=== PATIENT | female | born 1990 | race Caucasian/White ===

== ENCOUNTER 2017-01-17 03:44 | Emergency (ER) | payer SELFPAY ==
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
[2017-01-17] MEDS ORDERED: Haloperidol Lactate 5 MG/ML SDV ONE (04:03)
[2017-01-17] MEDS ORDERED: Haloperidol Lactate 5 MG/ML SDV IM ONE ×2 (04:06→04:47)
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
== END 2017-01-17 06:10 ==
LOC: MW.ED 03:44
DX: S00.83XA Contusion of other part of head, initial encounter (principal); F10.120 Alcohol abuse with intoxication, uncomplicated; V47.5XXA Car driver injured in collision with fixed or stationary object in traffic accident, initial encounter
CPT/HCPCS: 36415; 70450; 70450-26; 72125; 72125-26; 85025; 99283; 99285-25; J1630

== ENCOUNTER 2019-09-02 00:29 | Emergency (ER) | payer SELFPAY ==
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
== END 2019-09-02 01:00 ==
LOC: MW.ED 00:29
DX: Z02.89 Encounter for other administrative examinations (principal); S60.512A Abrasion of left hand, initial encounter; S60.511A Abrasion of right hand, initial encounter; Z88.5 Allergy status to narcotic agent; Z88.0 Allergy status to penicillin; Z91.030 Bee allergy status; V87.8XXA Person injured in other specified noncollision transport accidents involving motor vehicle (traffic), initial encounter
CPT/HCPCS: 99282; 99283

== ENCOUNTER 2020-10-23 17:52 | Emergency (ER) | payer SELFPAY ==
--- NOTE | 2020-10-23 21:24 | EDM.PDOC ---
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 [No Known Home Meds] 10/23/20 [History] Departure - Departure Time of Disposition: 22:53 Disposition: Home, Self-Care 01 Clinical Impression: Retained tampon Qualifiers: Encounter type: initial encounter Qualified Code(s): T19.2XXA - Foreign body in vulva and vagina, initial encounter - Discharge Information *PRESCRIPTION DRUG MONITORING PROGRAM REVIEWED*: Not Applicable *COPY OF PRESCRIPTION DRUG MONITORING REPORT IN PATIENT ROSALEE: Not Applicable Instructions: Vaginal Foreign Body Referrals: PCP,None [Primary Care Provider] - Forms: ED Department Discharge Additional Instructions: The following information is given to patients seen in the emergency department who are being discharged to home. This information is to outline your options for follow-up care. We provide all patients seen in our emergency department with a follow-up referral. The need for follow-up, as well as the timing and circumstances, are variable depending upon the specifics of your emergency department visit. If you don't have a primary care physician on staff, we will provide you with a referral. We always advise you to contact your personal physician following an emergency department visit to inform them of the circumstance of the visit and for follow-up with them and/or the need for any referrals to a consulting spec ialist. The emergency department will also refer you to a specialist when appropriate. This referral assures that you have the opportunity for follow-up care with a specialist. All of these measure are taken in an effort to provide you with optimal care, which includes your follow-up. Under all circumstances we always encourage you to contact your private physician who remains a resource for coordinating your care. When calling for follow-up care, please make the office aware that this follow-up is from your recent emergency room visit. If for any reason you are refused follow-up, please contact the [facility] Emergency Department at and asked to speak to the emergency department charge nurse. [facility] [address] [place] [address] [facility] [address] [place] [id number] Thank you for choosing the [facility] emergency department in [place] for your medical needs today. It was a pleasure caring for you. Today you were seen in the emergency department for pain tampon. - Assessment/Plan Assessment:: 30-year-old female received in signout from prior provider at 10 PM she presen chilango with vaginal discomfort and was found to have a retained tampon. After removal of the tampon there is no significant odor or discharge. Swabs are pending if swab is abnormal that would treat with Flagyl but if negative then would hold off on empiric antibiotics. Swabs negative patient discharged <Brittany Thibodeaux - Last Filed: 10/24/20 16:39> ED HPI GENERAL MEDICAL PROBLEM - General Source of Information: Reports: Patient History Limitations: Reports: No Limitations - History of Present Illness INITIAL COMMENTS - FREE TEXT/NARRATIVE: HISTORY AND PHYSICAL: History of present illness: Patient is a 30-year-old female who presents to the emergency room with complaints of vaginal odor, brown discharge and sensation of feeling something palpable in the vagina x4 days. Patient states she previously did not have any concerns of STDs as she has been with the same partner for 4 years. States she noticed a foul odor over the past 4 days with brown discharge. States she can feel something "that doesn't feel right" in the vagina. Patient denies any fever, chills, headache, change in vision, syncope or near syncope. Denies any chest pain, back pain, shortness of breath or cough. Denies any abdominal pain, nausea, vomiting, diarrhea, constipation or dysuria. Has not noted any blood in urine or stool. Denies any vaginal bleeding or lesions. Patient has been eating and drinking appropriately. Last menstrual period was 2 to 3 weeks ago, no concern for . Review of systems: As per history of present illness and below otherwise all systems reviewed and negative. Past medical history: As per history of present illness and as reviewed below otherwise noncontributory. Surgical history: As per history of present illness and as reviewed below otherwise noncontributory. Social history: See social history for further information Family history: As per history of present illness and as reviewed below otherwise noncontributory. Physical exam: General: Well developed and well nourished 30-year-old female. Alert and orientated x 3. Nontoxic in appearance and in no acute distress. Vital signs are stable and have been reviewed by me. Nursing notes were reviewed. HEENT: Atraumatic, normocephalic, pupils equal and reactive bilaterally, negative for conjunctival pallor or scleral icterus, mucous membranes moist, TMs normal bilaterally, throat clear, neck supple, nontender, trachea midline. No drooling or trismus noted. No meningeal signs. No hot potato voice noted. Lungs: Clear to auscultation bilaterally. No wheezes, rales, or rhonchi. Chest nontender. Normal work of breathing, no accessory muscles used. Heart: S1S2, regular rate and rhythm without overt murmur, gallops, or rubs. No JVD. No peripheral edema Abdomen: Soft, nondistended, nontender. Normoactive bowel sounds. Negative for masses or costovertebral tenderness. Pelvis: Stable nontender. Genitourinary/Rectal: This was done with consent and a water resource specialist at the bedside. Normal-appearing external genitalia. Patient did have retained tampon in the vaginal vault, saturated, odorous. Once removed the cervical os was identified, normal appearing. Swabs were obtained and sent to the lab. Skin: Intact, warm, dry. No lesions or rashes noted. Hematologic: No petechiae or purpra. Mucosa appropriate color and normal nail bed color and refill. Extremities: Atraumatic, moves all extremities per self without difficulty or deficits, negative for cords or calf pain. Neurovascular unremarkable. Neuro: Awake, alert, oriented. Cranial nerves II through XII unremarkable. Cerebellum unremarkable. Motor and sensory unremarkable throughout. Exam nonfocal. Psychiatric: Mood and affect are appropriate. Normal thought process. Answering questions appropriately. Please note that the patient was seen and evaluated during the 2019 SARS-CoV-2 novel coronavirus pandemic period. Community viral transmission is ongoing at time of this encounter and the emergency department is operating under pandemic response procedures. Medical Decision Making: Patient is a 30-year-old female who presents to the emergency room with complaints of vaginal discharge and odor. I did do a pelvic exam which revealed she had retained tampon. Patient states she did not know it was in there and believes it could be from 2 to 3 weeks ago when she had her last menstrual period. I did swab for gonorrhea chlamydia and DEVIN. Patient states she feels much better immediately after tampon removal. UA and urine are unremarkable. I have talked with the patient about today's findings, in addition to providing specific details for plan of care. Reassessment at the time of disposition demonstrates that the patient is in no acute distress. The patient is stable for discharge, counseling was provided and we discussed in great detail signs and symptoms that would prompt them to return to the Emergency Department. Medication, follow up and supportive care measures were reviewed and discussed. Voices understanding and is agreeable to plan of care. Denies any further questions or concerns at this time. Diagnostics: UA, urine , gonorrhea/chlamydia, DEVIN Therapeutics: None Impression: Retained tampon Definitive disposition and diagnosis as appropriate pending reevaluation and review of above. Abdominal Pain Score (Numeric/FACES): 1 Past Medical History HEENT History: Reports: Other (See Below) Cardiovascular History: Reports: Other (See Below) Other Cardiovascular History: unable to obtain Respiratory History: Reports: Other (See Below) Other Respiratory History: unable to obtain Gastrointestinal History: Reports: Other (See Below) Other Gastrointestinal History: unable to obtain Genitourinary History: Reports: Other (See Below) Other Genitourinary History: unable to obtain LOG BUYER History: Reports: Other (See Below) Other LOG BUYER History: unable to obtain Musculoskeletal History: Reports: Other (See Below) Other Musculoskeletal History: unable to obtain Neurological History: Reports: Other (See Below) Other Neuro History: unable to obtain Psychiatric History: Reports: Other (See Below) Other Psychiatric History: unable to obtain Endocrine/Metabolic History: Reports: Other (See Below) Other Endocrine/Metabolic History: unable to obtain Hematologic History: Reports: Other (See Below) Other Hematologic History: unable to obtain Immunologic History: Reports: Other (See Below) Other Immunologic History: unable to obtain Oncologic (Cancer) History: Reports: Other (See Below) Other Oncologic History: unable to obtain Dermatologic History: Reports: Other (See Below) Other Dermatologic History: unable to obtain - Infectious Disease History Infectious Disease History: Reports: Other (See Below) Other Infectious Disease History: unable to obtain - Past Surgical History HEENT Surgical History: Reports: Other (See Below) Other HEENT Surgeries/Procedures: unable to obtain Cardiovascular Surgical History: Reports: Other (See Below) Other Cardiovascular Surgeries/Procedures: unable to obtain Respiratory Surgical History: Reports: Other (See Below) Other Respiratory Surgeries/Procedures: unable to obtain GI Surgical History: Reports: Other (See Below) Other GI Surgeries/Procedures: unable to obtain Female Surgical History: Reports: Other (See Below) Other Female Surgeries/Procedures: unable to obtain Endocrine Surgical History: Reports: Other (See Below) Other Endocrine Surgeries/Procedures: unable to obtain Neurological Surgical History: Reports: Other (See Below) Other Neurological Surgeries/Procedures: unable to obtain Musculoskeletal Surgical History: Reports: Other (See Below) Other Musculoskeletal Surgeries/Procedures:: unable to obtain Social & Family History - Family History Family Medical History: No Pertinent Family History - Tobacco Use Tobacco Use Status *Q: Never Tobacco User Second Hand Smoke Exposure: No - Caffeine Use Caffeine Use: Reports: None Other Caffeine Use: unable to obtain - Recreational Drug Use Recreational Drug Use: No ED ROS GENERAL - Review of Systems Review Of Systems: Comprehensive ROS is negative, except as noted in HPI. ED EXAM, RENAL/ - Physical Exam Exam: See Below (See dictation) Course - Vital Signs Last Recorded V/S: Last Vital Signs Temp 98.9 F 10/23/20 21:13 Pulse 88 10/23/20 23:00 Resp 20 10/23/20 23:00 BP 115/70 10/23/20 23:00 Pulse Ox 97 10/23/20 23:00 - Orders/Labs/Meds Orders: Active Orders 24 hr Category Date Time Status CHLAMYDIA AND GONORRHEA BY TMA Stat Lab 10/23/20 21:15 Received Labs: Laboratory Tests 10/23/20 10/23/20 10/23/20 Range/Units 21:15 21:15 21:15 Urine Color YELLOW Urine Appearance CLEAR Urine pH 6.0 (5.0-8.0) Ur Specific Strang 1.025 (1.001-1.035) Urine Protein NEGATIVE (NEGATIVE) mg/dL Urine Glucose (UA) NEGATIVE (NEGATIVE) mg/dL Urine Ketones 40 H (NEGATIVE) mg/dL Urine Occult Blood NEGATIVE (NEGATIVE) Urine Nitrite NEGATIVE (NEGATIVE) Urine Bilirubin NEGATIVE (NEGATIVE) Urine Urobilinogen 0.2 (<2.0) EU/dL Ur Leukocyte Esterase NEGATIVE (NEGATIVE) Urine HCG, Qual NEGATIVE (NEGATIVE) Seda species DNA NEGATIVE (NEGATIVE) Gardnerella DNA Probe NEGATIVE (NEGATIVE) Trichomonas DNA Probe NEGATIVE (NEGATIVE) Sepsis Event Note (ED) - Evaluation Sepsis Screening Result: No Definite Risk - My Orders Last 24 Hours: My Active Orders 10/23/20 21:15 CHLAMYDIA AND GONORRHEA BY TMA Stat - Assessment/Plan Last 24 Hours: My Active Orders 10/23/20 21:15 CHLAMYDIA AND GONORRHEA BY TMA Stat
[2020-10-25 12:03] LABS: C.TRACHOMATIS BY TMA Negative (Negative); N.GONORRHOEAE BY TMA Negative (Negative)
== END 2020-10-23 23:00 | disposition home or self-care (01) ==
LOC: MW.ED 17:52
DX: T19.2XXA Foreign body in vulva and vagina, initial encounter (principal); Z91.030 Bee allergy status; Z88.5 Allergy status to narcotic agent; Z88.0 Allergy status to penicillin
CPT/HCPCS: 81003; 81025; 87480; 87491; 87510; 87591; 87660; 99283

== ENCOUNTER 2020-12-11 22:11 | Emergency (ER) | payer SELFPAY ==
--- NOTE | 2020-12-11 22:14 | EDM.PDOC ---
ED HPI GENERAL MEDICAL PROBLEM - General Stated Complaint: MEDICAL CLEARANCE Time Seen by Provider: 12/11/20 22:11 Source of Information: Reports: Patient History Limitations: Reports: No Limitations - History of Present Illness INITIAL COMMENTS - FREE TEXT/NARRATIVE: 30-year-old female presents with [employer] for medical clearance exam. Patient denies any medical complaints. - Related Data Allergies Allergy/AdvReac Type Severity Reaction Status Date / Time bee venom protein (honey bee) Allergy Anaphylactic Verified 10/23/20 21:16 Shock codeine Allergy Hives Verified 10/23/20 21:16 Penicillins Allergy Anaphylactic Verified 10/23/20 21:16 Shock Home Meds: Home Meds . [No Known Home Meds] 10/23/20 [History] Past Medical History HEENT History: Reports: Other (See Below) Cardiovascular History: Reports: Other (See Below) Other Cardiovascular History: unable to obtain Respiratory History: Reports: Other (See Below) Other Respiratory History: unable to obtain Gastrointestinal History: Reports: Other (See Below) Other Gastrointestinal History: unable to obtain Genitourinary History: Reports: Other (See Below) Other Genitourinary History: unable to obtain CONTACT CENTER REP History: Reports: Other (See Below) Other CONTACT CENTER REP History: unable to obtain Musculoskeletal History: Reports: Other (See Below) Other Musculoskeletal History: unable to obtain Neurological History: Reports: Other (See Below) Other Neuro History: unable to obtain Psychiatric History: Reports: Other (See Below) Other Psychiatric History: unable to obtain Endocrine/Metabolic History: Reports: Other (See Below) Other Endocrine/Metabolic History: unable to obtain Hematologic History: Reports: Other (See Below) Other Hematologic History: unable to obtain Immunologic History: Reports: Other (See Below) Other Immunologic History: unable to obtain Oncologic (Cancer) History: Reports: Other (See Below) Other Oncologic History: unable to obtain Dermatologic History: Reports: Other (See Below) Other Dermatologic History: unable to obtain - Infectious Disease History Infectious Disease History: Reports: Other (See Below) Other Infectious Disease History: unable to obtain - Past Surgical History HEENT Surgical History: Reports: Other (See Below) Other HEENT Surgeries/Procedures: unable to obtain Cardiovascular Surgical History: Reports: Other (See Below) Other Cardiovascular Surgeries/Procedures: unable to obtain Respiratory Surgical History: Reports: Other (See Below) Other Respiratory Surgeries/Procedures: unable to obtain GI Surgical History: Reports: Other (See Below) Other GI Surgeries/Procedures: unable to obtain Female Surgical History: Reports: Other (See Below) Other Female Surgeries/Procedures: unable to obtain Endocrine Surgical History: Reports: Other (See Below) Other Endocrine Surgeries/Procedures: unable to obtain Neurological Surgical History: Reports: Other (See Below) Other Neurological Surgeries/Procedures: unable to obtain Musculoskeletal Surgical History: Reports: Other (See Below) Other Musculoskeletal Surgeries/Procedures:: unable to obtain Social & Family History - Family History Family Medical History: No Pertinent Family History - Caffeine Use Caffeine Use: Reports: None Other Caffeine Use: unable to obtain ED ROS GENERAL - Review of Systems Review Of Systems: Unable To Obtain (Combative patient) Reason Not Obtained: Combative ED EXAM, GENERAL - Physical Exam Exam: See Below Exam Limited By: Uncooperative General Appearance: Alert, WD/WN, No Apparent Distress Ears: Hearing Grossly Normal Throat/Mouth: Normal Voice, Other (Screaming in full sentences) Head: Atraumatic, Normocephalic Respiratory/Chest: No Respiratory Distress, No Accessory Muscle Use Extremities: Normal Inspection, Other (Moving all extremities) Neurological: Other (Moving all extremities) Psychiatric: Other (Combative) Skin Exam: Warm, Dry, Intact Course - Re-Assessments/Exams Free Text/Narrative Re-Assessment/Exam: 12/11/20 22:12 Patient declines any further exam. Will not allow us to give vital signs. She appears medically stable for incarceration. Departure - Departure Time of Disposition: 22:13 Disposition: Home, Self-Care 01 Condition: Good Clinical Impression: Encounter for medical screening examination - Discharge Information Additional Instructions: The following information is given to patients seen in the emergency department who are being discharged to home. This information is to outline your options for follow-up care. We provide all patients seen in our emergency department with a follow-up referral. The need for follow-up, as well as the timing and circumstances, are variable depending upon the specifics of your emergency department visit. If you don't have a primary care physician on staff, we will provide you with a referral. We always advise you to contact your personal physician following an emergency department visit to inform them of the circumstance of the visit and for follow-up with them and/or the need for any referrals to a consulting specialist. The emergency department will also refer you to a specialist when appropriate. This referral assures that you have the opportunity for follow-up care with a specialist. All of these measure are taken in an effort to provide you with optimal care, which includes your follow-up. Under all circumstances we always encourage you to contact your private physician who remains a resource for coordinating your care. When calling for follow-up care, please make the office aware that this follow-up is from your recent emergency room visit. If for any reason you are refused follow-up, please contact the [facility] Emergency Department at and asked to speak to the emergency department shan nurse. Please follow up with your primary care physician. If you do not have a primary care physician, see below: [facility] [address] [place] [id number] [facility] [address] [place] [address] [facility] [address] [place] [address]
== END 2020-12-11 22:18 | disposition home or self-care (01) ==
LOC: MW.ED 22:11
DX: Z13.9 Encounter for screening, unspecified (principal); Z91.030 Bee allergy status; Z88.5 Allergy status to narcotic agent; Z88.0 Allergy status to penicillin
CPT/HCPCS: 99283

== ENCOUNTER 2021-11-21 16:05 | Emergency (ER) | payer OTHER ==
[2021-11-21] MEDS ORDERED: Diphtheria,Pertussis(Acell),Tetanus Vaccine 0.5 ML Syringe IM ONE (16:52)
== END 2021-11-21 17:42 | disposition home or self-care (01) ==
LOC: MW.ED 16:05
DX: S09.90XA Unspecified injury of head, initial encounter (principal); F17.210 Nicotine dependence, cigarettes, uncomplicated; Z23 Encounter for immunization; Z91.030 Bee allergy status; Z88.5 Allergy status to narcotic agent; Z88.0 Allergy status to penicillin; V48.9XXA Unspecified car occupant injured in noncollision transport accident in traffic accident, initial encounter; Y92.410 Unspecified street and highway as the place of occurrence of the external cause
CPT/HCPCS: 90471; 90715; 99283; 99283-25